=== PATIENT | female | born 1965 | race Caucasian/White ===

== ENCOUNTER 2024-01-08 00:08 | Emergency (ER) | payer BC ==
[~2024-01-08] VITALS: Ht 157.5 cm; Wt 63.5 kg
[2024-01-08 00:17] VITALS: BP_SYST 140; PULSE 115; RESP 20; TEMP 98.4; O2SAT 97
[2024-01-08] MEDS: KETOROLAC TROMETHAMINE 60 MG/2 ML VIAL IM ONE (02:08)
[2024-01-08 03:49] VITALS: BP_SYST 132; PULSE 106; RESP 16; TEMP 98.5; O2SAT 95
[2024-01-08] MEDS ORDERED: CYCL10TA24 PO (04:12)
== END 2024-01-08 04:33 | disposition home or self-care (01) ==
LOC: SED 00:08
DX: S16.1XXA Strain of muscle, fascia and tendon at neck level, initial encounter (principal); S09.8XXA Other specified injuries of head, initial encounter; M79.7 Fibromyalgia; Z88.0 Allergy status to penicillin; W22.8XXA Striking against or struck by other objects, initial encounter; Y93.89 Activity, other specified; Y92.89 Other specified places as the place of occurrence of the external cause; Y99.8 Other external cause status
CPT/HCPCS: 99285; 72125; 96372; J1885

== ENCOUNTER 2024-01-22 07:44 | Emergency (ER) | payer BC ==
[~2024-01-22] VITALS: Ht 152.4 cm; Wt 68.0 kg
[~2024-01-22 07:44] MED LIST: CYCL10TA24 PO
[2024-01-22 07:49] VITALS: BP_SYST 122; PULSE 71; RESP 20; TEMP 97.3; O2SAT 97
[2024-01-22] MEDS: KETOROLAC TROMETHAMINE 15 MG VIAL IVP ONE (08:11)
[2024-01-22] MEDS: DIPHENHYDRAMINE INJ 50 MG/ML VIAL IVP ONE (08:13)
[2024-01-22] MEDS: PROCHLORPERAZINE EDISYLATE 10 MG/2 ML VIAL IVP ONE (08:13)
[2024-01-22] MEDS: fentaNYL CITRATE/PF 100 MCG/2 ML AMP IM ONE (10:18)
[2024-01-22 10:33] LABS: BASOPHILS # (AUTO) 0.1 K/uL (0.0-0.2); BASOPHILS % (AUTO) 0.5 % (0.0-2.0); EOSINOPHILS # (AUTO) 0.2 K/uL (0.0-0.4); EOSINOPHILS % (AUTO) 1.1 % (0.0-4.0); HEMATOCRIT 34.8 % (36-48); HEMOGLOBIN 11.9 g/dL (12.0-16.0); LYMPHOCYTES % (AUTO) 13.7 % (20.5-51.5); MEAN CORPUSCULAR HEMOGLOBIN 32 pg (27-31); MEAN CORPUSCULAR HGB CONC 34 % (32-36); MEAN CORPUSCULAR VOLUME 93 fL (79.0-98.0); MONOCYTES # (AUTO) 0.9 K/uL (0.0-1.0); MONOCYTES % (AUTO) 6.1 % (1.7-9.3); NEUTROPHILS # (AUTO) 11.7 K/uL (1.8-7.7); NEUTROPHILS % (AUTO) 78.6 % (40.0-70.0); PLATELET COUNT (AUTO) 357 K/uL (130-430); RED BLOOD CELL COUNT(AUTO) 3.73 MIL/uL (4.2-6.2); RED CELL DISTRIBUTION WIDTH 14.4 % (9.0-15.0); WHITE BLOOD COUNT (AUTO) 14.8 K/uL (4.8-10.8)
[2024-01-22 10:45] LABS: CALCIUM 9.1 mg/dL (8.4-11.0); CREATININE 1.26 mg/dL (0.55-1.30); POTASSIUM 4.3 mmol/L (3.5-5.1)
[2024-01-22] MEDS: ONDANSETRON HCL 4 MG/2 ML VIAL IVP ONE (11:24)
[2024-01-22] MEDS: MORPHINE 4 MG INJ. 4 MG/ML VIAL IVP ONE (11:25)
[2024-01-22 11:32] VITALS: BP_SYST 135; PULSE 102; RESP 18; TEMP 98.4; O2SAT 96
== END 2024-01-22 11:10 | disposition home or self-care (01) ==
LOC: SED 07:44
DX: I60.9 Nontraumatic subarachnoid hemorrhage, unspecified (principal); G43.909 Migraine, unspecified, not intractable, without status migrainosus; G89.29 Other chronic pain; M79.7 Fibromyalgia; Z88.0 Allergy status to penicillin; Z79.899 Other long term (current) drug therapy
CPT/HCPCS: 99291; 96374; 96375; 70450; 80048; 85025; 36415; 96372; J1200; J1885; J2405; J0780; J3010; J2270